=== PATIENT | male | born 1970 | race Caucasian/White ===

== ENCOUNTER 2018-06-20 09:21 | Inpatient (IN) | payer MEDICAID ==
[~2018-06-20] VITALS: Ht 172.7 cm; Wt 79.0 kg
[2018-06-20 09:29] VITALS: Ht 172.7 cm; Wt 79.0 kg
[2018-06-20 10:00] LABS: BASOPHIL % 0.6 % (0-2); PLATELET COUNT 176 x10^3mcL (130-400); RED CELL DISTRIBUTION WIDTH 13.6 % (11.5-14.5)
[2018-06-20 10:29] LABS: CALCIUM 8.6 mg/dL (8.5-10.1); CARBON DIOXIDE 23.8 mmol/L (21-32); CHLORIDE SERUM 105 mmol/L (98-107); CREATININE SERUM 1.2 mg/dL (0.7-1.3); GFR1 > 60 mL/min; GLUCOSE SERUM 137 mg/dL (74-106); POTASSIUM SERUM 3.9 mmol/L (3.5-5.1); SODIUM SERUM 139 mmol/L (136-145)
[2018-06-20 10:33] LABS: ALBUMIN 4.1 g/dL (3.4-5.0); ALKALINE PHOSPHATASE 85 U/L (46-116); ALT/SGPT 37 U/L (16-63); AST/SGOT 25 U/L (15-37); BILIRUBIN TOTAL 0.49 mg/dL (0.20-1.00); CHOLESTEROL 154 mg/dL (<200); HDL CHOLESTEROL 43 mg/dL (40-60); MAGNESIUM 1.7 mg/dL (1.8-2.4)
[2018-06-20 10:38] LABS: TOTAL PROTEIN, SERUM 8.3 g/dL (6.4-8.2)
[2018-06-20 11:29] LABS: microscopic required? NO
[2018-06-20 11:33] LABS: UA SPECIFIC GRAVITY 1.025 (1.005-1.035); urine erythrocyte NEGATIVE (NEGATIVE)
[2018-06-20 11:50] LABS: AMPHETAMINE QUAL UR NONE DETECTED (See below)
[2018-06-20 14:38] VITALS: BP 146/94
[2018-06-20 17:56] VITALS: BP 133/85
[2018-06-20 20:39] VITALS: BP 114/64
[2018-06-21 05:20] VITALS: BP 129/78
[2018-06-21 06:10] LABS: BASOPHIL % 0.2 % (0-2); PLATELET COUNT 160 x10^3mcL (130-400); RED CELL DISTRIBUTION WIDTH 13.9 % (11.5-14.5)
[2018-06-21 06:36] LABS: CALCIUM 8.6 mg/dL (8.5-10.1); CARBON DIOXIDE 26.3 mmol/L (21-32); CHLORIDE SERUM 107 mmol/L (98-107); CREATININE SERUM 1.1 mg/dL (0.7-1.3); GFR1 > 60 mL/min; GLUCOSE SERUM 104 mg/dL (74-106); MAGNESIUM 2.2 mg/dL (1.8-2.4); PHOSPHOROUS 3.1 mg/dL (2.5-4.9); POTASSIUM SERUM 4.4 mmol/L (3.5-5.1); SODIUM SERUM 140 mmol/L (136-145)
[2018-06-21 08:16] VITALS: BP 141/96
[2018-06-21 12:07] VITALS: BP 139/88
[2018-06-21 16:23] VITALS: BP 135/86
[2018-06-21 21:06] VITALS: BP 120/75
[2018-06-22 05:38] VITALS: BP 135/88
[2018-06-22 05:53] LABS: BASOPHIL % 0.4 % (0-2); PLATELET COUNT 156 x10^3mcL (130-400); RED CELL DISTRIBUTION WIDTH 13.9 % (11.5-14.5)
[2018-06-22 06:29] LABS: CALCIUM 8.4 mg/dL (8.5-10.1); CARBON DIOXIDE 24.9 mmol/L (21-32); CHLORIDE SERUM 108 mmol/L (98-107); GFR1 > 60 mL/min; GLUCOSE SERUM 100 mg/dL (74-106); MAGNESIUM 1.9 mg/dL (1.8-2.4); PHOSPHOROUS 2.8 mg/dL (2.5-4.9); POTASSIUM SERUM 3.8 mmol/L (3.5-5.1); SODIUM SERUM 139 mmol/L (136-145)
[2018-06-22 08:39] VITALS: BP 134/88
[2018-06-22] MEDS ORDERED: MECLIZINE HYDRO25 M1 PO (12:16)
[2018-06-22 12:32] VITALS: BP 134/88
== END 2018-06-22 13:00 | disposition home or self-care (01) | DRG 111 ==
LOC: ED 09:21 → DU 13:00
PROVIDERS: Emergency Medicine; Internal Medicine
DX: R42 Dizziness and giddiness (principal); E83.42 Hypomagnesemia; F12.10 Cannabis abuse, uncomplicated; R73.9 Hyperglycemia, unspecified
CPT/HCPCS: 82962; 97110-GP; 97116-GP; G0480; J2550; J3475; J7030; J8597; Q0092